=== PATIENT | female | born 1990 | race Two or more races ===

== ENCOUNTER → 2021-12-31 08:00 | Outpatient (CLI) | payer OTHER ==
[~2021-12-31] VITALS: Ht 160 cm; Wt 65.8 kg
[~2021-12-31 08:00] MED LIST: SYNTHROID88 MCG PO
== END | disposition home or self-care (01) ==
LOC: LAB 08:00 → LDR 01-02 07:00 → EDSTATUS 01-02 12:45
PROVIDERS: ATTEND Specialist
DX: I10 Essential (primary) hypertension (principal)